=== PATIENT | male | born 2000 ===

== ENCOUNTER → 2022-06-08 | Emergency (ER) | payer BC ==
[~2022-06-08] VITALS: Ht 180.3 cm; Wt 113.6 kg
[~2022-06-08] MED LIST: AMOX-117 PO; HYDROcodone/acetaminophen 10/325mg tab PO ONE; LIDOcaine 1% 30ml preserv. free vial IJ ONE; TETanus/Pertussis (Acell)/Diphther VAC/PF (Tdap-Adult) 0.5ml syringe IMVAC ONE; bacitracin 15gm ointment TP ONE; ondansetron 4mg rapidly disintigrating tab PO ONE
[2022-06-08 15:04] VITALS: BP 126/74
== END | disposition home or self-care (01) ==
LOC: ER 14:53
DX: S61.210A Laceration without foreign body of right index finger without damage to nail, initial encounter (principal); X58.XXXA Exposure to other specified factors, initial encounter; Y93.89 Activity, other specified; Y92.89 Other specified places as the place of occurrence of the external cause; Y99.8 Other external cause status
CPT/HCPCS: 12002; 73130; 90471; 90715; 99283; J7030; A6258; A6449

== ENCOUNTER 2022-07-21 19:28 | Emergency (ER) | payer BC ==
[~2022-07-21] VITALS: Ht 180.3 cm; Wt 110.4 kg
[2022-07-21 19:31] VITALS: BP 130/75
== END 2022-07-21 20:08 | disposition home or self-care (01) ==
LOC: ER 19:28
DX: F41.9 Anxiety disorder, unspecified (principal)
CPT/HCPCS: 99281